=== PATIENT | female | born 1995 | race Asian ===

== ENCOUNTER → 2016-10-06 | Outpatient (CLI) | payer OTHER ==
--- NOTE | ~2016-10-06 | CR63 ---
[facility] Service of [facility] RADIOLOGY TEXT RESULTS PATIENT: RYLEY RHODES LOCATION: [facility] : [birth year] UNIT #: [id number] AGE: [address]: ABY SERNA MD SEX: F ORDER DR: [id number] [facility] [address] [place] [address] [place], [place] [address] [id number] O MR#: [id number] Acc #: [id number] NAME: RYLEY RHODES : 1995 SEX: F STUDY DATE/TIME: 10/06/2016 16:49 UNIT: [facility] ROOM: STUDY DESCRIPTION: CR Chest 2 View Attending Physician: Aby Serna M.D. Referring Physician: Aby Serna M.D. Ordering Physician: Aby Serna M.D. Primary Care Physician: Aby Serna M.D. MEDICAL IMAGING REPORT This report is preliminary unless electronic signature is present EXAM Two-view chest, 10/06/2016. HISTORY 20-year-old female with respiratory infection and positive TB skin test from 10/06/2016. COMPARISON None. FINDINGS Two views of the chest demonstrate clear lungs. No pleural effusion or pneumothorax. Heart size and mediastinum are normal. Pulmonary vasculature normal. IMPRESSION No acute cardiopulmonary findings. Dictated by... Maurice Cornelius M.D. THIS IS AN ELECTRONICALLY VERIFIED REPORT Maurice Cornelius M.D. at 10/11/2016 10:26 AM GURU/nelly TD: 10/07/2016 01:05 JOB #: [id number] MEDICAL IMAGING REPORT Page 1 of 1 COPY
== END | disposition home or self-care (01) ==
LOC: CRAD 16:14
DX: J06.9 Acute upper respiratory infection, unspecified (principal)
CPT/HCPCS: 71020